=== PATIENT | female | born 1935 | race Caucasian/White ===

== ENCOUNTER 2018-05-28 20:06 | Emergency (ER) | payer MEDICARE, BC, OTHER ==
[~2018-05-28] VITALS: Ht 157.5 cm; Wt 72.7 kg
[~2018-05-28 20:06] MED LIST: ALBU8.5H8 IH; ASPI-1265 PO; BETA1TAB18 PO; CALC0.253 PO; CLOP75TA16 PO; MAGN100T5; METF500T PO; OSC500T PO; PANT-47 PO; PRAV20TA4 PO; SOTA80TA46; SYN0.0125T PO; VALA-7 PO
[2018-05-28] MEDS ORDERED: ketorolac tromethamine 15mg/ml inj. IV ONE (20:25)
[2018-05-28 21:50] VITALS: BP 117/85
== END 2018-05-28 22:50 | disposition home or self-care (01) ==
LOC: ER 20:07
DX: S76.012A Strain of muscle, fascia and tendon of left hip, initial encounter (principal); E11.42 Type 2 diabetes mellitus with diabetic polyneuropathy; I10 Essential (primary) hypertension; K21.9 Gastro-esophageal reflux disease without esophagitis; Z90.49 Acquired absence of other specified parts of digestive tract; Z90.710 Acquired absence of both cervix and uterus; Z87.442 Personal history of urinary calculi; Z87.440 Personal history of urinary (tract) infections; Z79.82 Long term (current) use of aspirin; Z88.0 Allergy status to penicillin; Z88.1 Allergy status to other antibiotic agents; Z88.8 Allergy status to other drugs, medicaments and biological substances; X50.1XXA Overexertion from prolonged static or awkward postures, initial encounter; Y93.89 Activity, other specified; Y92.89 Other specified places as the place of occurrence of the external cause; Y99.8 Other external cause status
CPT/HCPCS: 73502; 96374; 99284; J1885

== ENCOUNTER 2018-08-04 12:46 | Emergency (ER) | payer MEDICARE, BC, OTHER ==
[~2018-08-04] VITALS: Ht 160 cm; Wt 72.0 kg
[2018-08-04 13:20] LABS: BASOPHILS # (AUTO) 0.1 X10'3 (0-0.2); BASOPHILS % (AUTO) 1.5 % (0-1); EOSINOPHILS # (AUTO) 0.1 X10'3 (0-0.9); EOSINOPHILS % (AUTO) 1.6 % (0-6); HEMATOCRIT 40.4 % (35.0-45.0); HEMOGLOBIN 12.7 g/dl (12.0-16.0); LYMPHOCYTES # (AUTO) 2.8 X10'3 (1.1-4.8); LYMPHOCYTES % (AUTO) 30.1 % (21-51); MEAN CORPUSCULAR HEMOGLOBIN 28.9 PG (27.0-31.0); MEAN CORPUSCULAR HGB CONC 31.5 % (33.0-36.5); MEAN CORPUSCULAR VOLUME 91.7 FL (78-98); MEAN PLATELET VOLUME 9.2 FL (7.4-10.4); MONOCYTES # (AUTO) 1.1 X10'3 (0-0.9); MONOCYTES % (AUTO) 12.1 % (2-12); NEUTROPHILS # (AUTO) 5.1 X10'3 (1.8-7.7); NEUTROPHILS % (AUTO) 54.7 % (42-75); PLATELET COUNT 325 X10'3 (140-440); RED BLOOD COUNT 4.41 X10'6 (4.20-5.60); WHITE BLOOD COUNT 9.4 X10'3 (4.5-11.0)
[2018-08-04 13:34] LABS: ANISOCYTOSIS 1+; PLATELET ESTIMATE NORMAL; TARGET CELLS FEW
[2018-08-04 13:46] LABS: ALANINE AMINOTRANSFERASE 26 U/L (12-78); ALBUMIN 3.2 G/DL (3.4-5.0); ALBUMIN/GLOBULIN RATIO 0.8 (1.1-1.5); ALKALINE PHOSPHATASE 91 IU/L (46-116); ANION GAP 10 (8-16); ASPARTATE AMINO TRANSFERASE 24 U/L (10-37); BILIRUBIN,TOTAL 0.3 MG/DL (0.1-1.0); BLOOD UREA NITROGEN 20 MG/DL (7-18); BUN/CREATININE RATIO 16.7 (6.6-38.0); CALCIUM 8.4 MG/DL (8.5-10.1); CHLORIDE 103 MMOL/L (99-107); GLUCOSE 78 MG/DL (70-104); MAGNESIUM 1.8 MG/DL (1.5-2.4); POTASSIUM 3.8 MMOL/L (3.5-5.1); SODIUM 141 MMOL/L (135-145); TOTAL CARBON DIOXIDE 28.5 MMOL/L (24-32); TOTAL PROTEIN 7.4 G/DL (6.4-8.2); eGFR 43 ML/MIN
[2018-08-04 14:27] VITALS: BP 142/85
== END 2018-08-04 14:29 | disposition home or self-care (01) ==
LOC: ER 12:46
DX: R25.2 Cramp and spasm (principal); E83.51 Hypocalcemia; I10 Essential (primary) hypertension; K21.9 Gastro-esophageal reflux disease without esophagitis; E11.42 Type 2 diabetes mellitus with diabetic polyneuropathy; M19.90 Unspecified osteoarthritis, unspecified site; Z90.49 Acquired absence of other specified parts of digestive tract; Z90.710 Acquired absence of both cervix and uterus; Z98.890 Other specified postprocedural states; Z88.0 Allergy status to penicillin; Z88.1 Allergy status to other antibiotic agents; Z88.5 Allergy status to narcotic agent; Z88.6 Allergy status to analgesic agent; Z88.8 Allergy status to other drugs, medicaments and biological substances; Z79.82 Long term (current) use of aspirin; Z79.01 Long term (current) use of anticoagulants; Z79.899 Other long term (current) drug therapy
CPT/HCPCS: 36415; 80053; 83735; 85025; 99284

== ENCOUNTER 2018-11-12 19:31 | Emergency (ER) | payer MEDICARE, BC, OTHER ==
[~2018-11-12] VITALS: Ht 172.7 cm; Wt 72.7 kg
--- NOTE | 2018-11-12 19:37 | NUR ---
PT OFF TRAUMA STATUS DUE TO MD SHETTY.
[2018-11-12] MEDS ORDERED: LIDOcaine 2% 10ml TOPICAL JELLY (Urojet) MM ONE (19:50)
[2018-11-12 20:17] LABS: CLARITY,URINE CLEAR (Clear); COLOR,URINE YELLOW (Yellow); GLUCOSE, URINE NEGATIVE (Neg); KETONES,URINE NEGATIVE (Neg); LEUKOCYTE ESTERASE ,URINE NEGATIVE (Neg); NITRITES, URINE NEGATIVE (Neg); OCCULT BLOOD,URINE TRACE-LYSED (Neg); PH,URINE 6.5 (4.8-8.0); PROTEIN,URINE NEGATIVE (Neg); UROBILINOGEN,URINE 0.2 E.U/dL (0.2-1.0)
[2018-11-12] MEDS ORDERED: fentaNYL/PF 50MCG/1 ML 2ML syringe IV ONE (20:20)
[2018-11-12 20:25] LABS: UA COLLECTION TYPE FOLEY CATH
[2018-11-12 20:26] LABS: BACTERIA,URINE NONE SEEN /HPF (Neg); RBC,URINE 0-2 /HPF (0-2); SQUAMOUS EPITHELIAL CELL,UR FEW /LPF (FEW); WBC,URINE NONE SEEN /HPF (0-4)
[2018-11-12 20:34] LABS: BASOPHILS # (AUTO) 0.2 X10'3 (0-0.2); BASOPHILS % (AUTO) 1.1 % (0-1); EOSINOPHILS # (AUTO) 0.1 X10'3 (0-0.9); EOSINOPHILS % (AUTO) 0.6 % (0-6); HEMATOCRIT 40.7 % (35.0-45.0); HEMOGLOBIN 12.8 g/dl (12.0-16.0); LYMPHOCYTES # (AUTO) 1.7 X10'3 (1.1-4.8); LYMPHOCYTES % (AUTO) 12.1 % (21-51); MEAN CORPUSCULAR HEMOGLOBIN 28.1 PG (27.0-31.0); MEAN CORPUSCULAR HGB CONC 31.4 g/dL (33.0-36.5); MEAN CORPUSCULAR VOLUME 89.6 FL (78-98); MEAN PLATELET VOLUME 9.7 FL (7.4-10.4); MONOCYTES % (AUTO) 6.9 % (2-12); NEUTROPHILS # (AUTO) 11.4 X10'3 (1.8-7.7); NEUTROPHILS % (AUTO) 79.3 % (42-75); PLATELET COUNT 329 X10'3 (140-440); RED BLOOD COUNT 4.54 X10'6 (4.20-5.60); RED CELL DISTRIBUTION WIDTH 16.9 % (11.5-14.5); WHITE BLOOD COUNT 14.4 X10'3 (4.5-11.0)
[2018-11-12 20:39] LABS: ALANINE AMINOTRANSFERASE 26 U/L (12-78); ALBUMIN 3.3 G/DL (3.4-5.0); ALBUMIN/GLOBULIN RATIO 0.7 (1.1-1.5); ALKALINE PHOSPHATASE 112 IU/L (46-116); ANION GAP 10 (8-16); ASPARTATE AMINO TRANSFERASE 25 U/L (10-37); BILIRUBIN,TOTAL 0.4 MG/DL (0.1-1.0); BLOOD UREA NITROGEN 16 MG/DL (7-18); CALCIUM 7.8 MG/DL (8.5-10.1); CHLORIDE 99 MMOL/L (99-107); CREATININE 0.89 MG/DL (0.40-0.90); GLUCOSE 103 MG/DL (70-104); POTASSIUM 3.6 MMOL/L (3.5-5.1); SODIUM 138 MMOL/L (135-145); TOTAL CARBON DIOXIDE 28.8 MMOL/L (24-32); TOTAL PROTEIN 7.9 G/DL (6.4-8.2); eGFR 61 ML/MIN
[2018-11-12 20:54] LABS: INR 1.1 INR; PARTIAL THROMBOPLASTIN TIME 35 SECONDS (22-32); PROTHROMBIN TIME 10.8 SECONDS (9.0-12.0)
[2018-11-12] MEDS ORDERED: morphine 4 MG/ML inj SYRINge IM ONE (22:25)
[2018-11-13] MEDS ORDERED: morphine 4 MG/ML inj SYRINge IV ONE
--- NOTE | 2018-11-13 01:45 | NUR ---
Verbal from Dr. Bryson to leave adams in place for retention until pt can follow up with PCP.
--- NOTE | 2018-11-13 02:04 | NUR ---
Per Dr Boogie, pt to be dc'd with FC in place d/t urinary retention. She is to f/u with PCP in 2-3 days for removal. Bedside drainage switched to leg bag after being emptied.
[2018-11-13 02:11] VITALS: BP 130/75
== END 2018-11-13 02:15 | disposition home or self-care (01) ==
LOC: ER 19:31
DX: M25.551 Pain in right hip (principal); I10 Essential (primary) hypertension; K21.9 Gastro-esophageal reflux disease without esophagitis; M19.90 Unspecified osteoarthritis, unspecified site; E11.42 Type 2 diabetes mellitus with diabetic polyneuropathy; Z90.49 Acquired absence of other specified parts of digestive tract; Z90.710 Acquired absence of both cervix and uterus; Z88.5 Allergy status to narcotic agent; Z88.0 Allergy status to penicillin; Z88.1 Allergy status to other antibiotic agents; Z88.6 Allergy status to analgesic agent; Z88.8 Allergy status to other drugs, medicaments and biological substances; Z79.82 Long term (current) use of aspirin; Z79.84 Long term (current) use of oral hypoglycemic drugs; W01.0XXA Fall on same level from slipping, tripping and stumbling without subsequent striking against object, initial encounter; Y93.89 Activity, other specified; Y92.89 Other specified places as the place of occurrence of the external cause; Y99.8 Other external cause status
CPT/HCPCS: 36415; 70450; 71045; 72192; 73502; 80053; 81001; 85025; 85610; 85730; 86885; 86900; 86901; 93005; 96372; 96374; 99284; J2270; J7030

== ENCOUNTER 2018-11-13 21:30 | Emergency (ER) | payer MEDICARE, BC, OTHER ==
[~2018-11-13] VITALS: Ht 157.5 cm; Wt 73.1 kg
[2018-11-13 21:40] VITALS: BP 143/74
== END 2018-11-13 23:09 | disposition home or self-care (01) ==
LOC: ER 21:31
DX: M25.551 Pain in right hip (principal); Z46.6 Encounter for fitting and adjustment of urinary device; I10 Essential (primary) hypertension; K21.9 Gastro-esophageal reflux disease without esophagitis; E11.40 Type 2 diabetes mellitus with diabetic neuropathy, unspecified; M19.90 Unspecified osteoarthritis, unspecified site; Z88.6 Allergy status to analgesic agent; Z88.1 Allergy status to other antibiotic agents; Z88.0 Allergy status to penicillin; Z88.8 Allergy status to other drugs, medicaments and biological substances; Z79.82 Long term (current) use of aspirin
CPT/HCPCS: 99284

== ENCOUNTER 2018-11-22 17:16 | Emergency (ER) | payer MEDICARE, BC, OTHER ==
[~2018-11-22] VITALS: Ht 157.5 cm; Wt 72.7 kg
[~2018-11-22 17:16] MED LIST changes: -CLOP75TA16 PO; +CLOP75TA8 PO
[2018-11-22 19:07] VITALS: BP 154/72
[2018-11-22] MEDS ORDERED: magnesium citrate 296ml oral solution PO ONE (19:25)
[2018-11-22 20:16] LABS: BASOPHILS # (AUTO) 0.2 X10'3 (0-0.2); BASOPHILS % (AUTO) 2.1 % (0-1); EOSINOPHILS # (AUTO) 0.4 X10'3 (0-0.9); EOSINOPHILS % (AUTO) 3.4 % (0-6); HEMATOCRIT 40.4 % (35.0-45.0); HEMOGLOBIN 13.2 g/dl (12.0-16.0); LYMPHOCYTES # (AUTO) 2.8 X10'3 (1.1-4.8); LYMPHOCYTES % (AUTO) 24.7 % (21-51); MEAN CORPUSCULAR HEMOGLOBIN 29.5 PG (27.0-31.0); MEAN CORPUSCULAR HGB CONC 32.7 g/dL (33.0-36.5); MEAN CORPUSCULAR VOLUME 90.2 FL (78-98); MEAN PLATELET VOLUME 9.2 FL (7.4-10.4); MONOCYTES % (AUTO) 8.9 % (2-12); NEUTROPHILS # (AUTO) 6.8 X10'3 (1.8-7.7); NEUTROPHILS % (AUTO) 60.9 % (42-75); PLATELET COUNT 365 X10'3 (140-440); RED BLOOD COUNT 4.48 X10'6 (4.20-5.60); RED CELL DISTRIBUTION WIDTH 17.5 % (11.5-14.5); WHITE BLOOD COUNT 11.1 X10'3 (4.5-11.0)
[2018-11-22 20:23] LABS: ALANINE AMINOTRANSFERASE 31 U/L (12-78); ALBUMIN 3.3 G/DL (3.4-5.0); ALBUMIN/GLOBULIN RATIO 0.7 (1.1-1.5); ALKALINE PHOSPHATASE 136 IU/L (46-116); ANION GAP 2 (8-16); ASPARTATE AMINO TRANSFERASE 23 U/L (10-37); BILIRUBIN,TOTAL 0.2 MG/DL (0.1-1.0); BLOOD UREA NITROGEN 17 MG/DL (7-18); BUN/CREATININE RATIO 15.7 (6.6-38.0); CALCIUM 9.6 MG/DL (8.5-10.1); CHLORIDE 98 MMOL/L (99-107); CREATININE 1.08 MG/DL (0.40-0.90); GLUCOSE 95 MG/DL (70-104); POTASSIUM 4.2 MMOL/L (3.5-5.1); SODIUM 135 MMOL/L (135-145); TOTAL CARBON DIOXIDE 34.9 MMOL/L (24-32); TOTAL PROTEIN 7.9 G/DL (6.4-8.2); eGFR 48 ML/MIN
[2018-11-22] MEDS ORDERED: polyethylene glycol 3350 17gm powd pack PO SCH (22:02)
[2018-11-22] MEDS ORDERED: POLY17PO10 PO (22:06)
[2018-11-22] MEDS ORDERED: MAGN296S68 CORPAK (22:06)
== END 2018-11-22 22:33 | disposition home or self-care (01) ==
LOC: ER 17:18
DX: K59.00 Constipation, unspecified (principal); E11.42 Type 2 diabetes mellitus with diabetic polyneuropathy; I10 Essential (primary) hypertension; K21.9 Gastro-esophageal reflux disease without esophagitis; E11.9 Type 2 diabetes mellitus without complications; M19.90 Unspecified osteoarthritis, unspecified site; Z90.49 Acquired absence of other specified parts of digestive tract; Z90.710 Acquired absence of both cervix and uterus; Z98.890 Other specified postprocedural states; Z88.0 Allergy status to penicillin; Z88.5 Allergy status to narcotic agent; Z88.8 Allergy status to other drugs, medicaments and biological substances; Z79.82 Long term (current) use of aspirin; Z79.01 Long term (current) use of anticoagulants; Z79.899 Other long term (current) drug therapy
CPT/HCPCS: 36415; 74018; 80053; 83605; 85025; 99284

== ENCOUNTER 2018-12-08 14:29 | Inpatient (IN) | payer MEDICARE, BC, OTHER | END 2018-12-13 11:45 | disposition home or self-care (01) | LOC: SUR 3N 12-10 10:59 → ER 14:29 → SUR 3N 12-09 19:04 → ED HOLD 20:25 | DX: N39.0 Urinary tract infection, site not specified (principal); G93.41 Metabolic encephalopathy; E11.42 Type 2 diabetes mellitus with diabetic polyneuropathy; I10 Essential (primary) hypertension; E03.9 Hypothyroidism, unspecified; F03.90 Unspecified dementia, unspecified severity, without behavioral disturbance, psychotic disturbance, mood disturbance, and anxiety ==

== ENCOUNTER 2019-04-26 11:02 | Inpatient (IN) | payer MEDICARE, BC, OTHER ==
[~2019-04-26] VITALS: Ht 162.6 cm; Wt 69.9 kg
[~2019-04-26 11:02] MED LIST changes: -ALBU8.5H8 IH; +APIX5TAB3 PO; -ASPI-1265 PO; -BETA1TAB18 PO; -CALC0.253 PO; +CALC0.2536 PO; -CLOP75TA8 PO; +ESOM40CA49 PO; +LEVO125T PO; -MAGN100T5; +MAGN500C16 PO; -METF500T PO; +METO50TA16 PO; -OSC500T PO; -PANT-47 PO; +PRAV10TA39 PO; -PRAV20TA4 PO; -SOTA80TA46; -SYN0.0125T PO; -VALA-7 PO; +VALA500T PO
[2019-04-26] MEDS ORDERED: normal saline 1000ML IV soln IV ONE (11:50)
[2019-04-26 12:02] LABS: BASOPHILS % (AUTO) 0.2 % (0-1); EOSINOPHILS % (AUTO) 0 % (0-6); HEMATOCRIT 39.7 % (35.0-45.0); HEMOGLOBIN 13.1 g/dl (12.0-16.0); LYMPHOCYTES # (AUTO) 0.2 X10'3 (1.1-4.8); LYMPHOCYTES % (AUTO) 1.3 % (21-51); MEAN CORPUSCULAR HEMOGLOBIN 31.6 PG (27.0-31.0); MEAN CORPUSCULAR VOLUME 95.6 FL (78-98); MEAN PLATELET VOLUME 9.7 FL (7.4-10.4); MONOCYTES # (AUTO) 0.3 X10'3 (0-0.9); NEUTROPHILS # (AUTO) 14.9 X10'3 (1.8-7.7); NEUTROPHILS % (AUTO) 96.5 % (42-75); PLATELET COUNT 308 X10'3 (140-440); RED BLOOD COUNT 4.16 X10'6 (4.20-5.60); RED CELL DISTRIBUTION WIDTH 14.6 % (11.5-14.5); WHITE BLOOD COUNT 15.5 X10'3 (4.5-11.0)
[2019-04-26] MEDS ORDERED: ondansetron/PF 4mg/2ml inj IV ONE (12:15)
[2019-04-26 12:16] LABS: ALANINE AMINOTRANSFERASE 24 U/L (12-78); ALBUMIN 3.3 G/DL (3.4-5.0); ALBUMIN/GLOBULIN RATIO 0.8 (1.1-1.5); ALKALINE PHOSPHATASE 88 IU/L (46-116); ANION GAP 10 (8-16); ASPARTATE AMINO TRANSFERASE 22 U/L (10-37); BILIRUBIN,TOTAL 0.5 MG/DL (0.1-1.0); BLOOD UREA NITROGEN 18 MG/DL (7-18); BUN/CREATININE RATIO 13.6 (6.6-38.0); CALCIUM 8.3 MG/DL (8.5-10.1); CHLORIDE 102 MMOL/L (99-107); CREATININE 1.32 MG/DL (0.40-0.90); GLUCOSE 222 MG/DL (70-104); POTASSIUM 3.4 MMOL/L (3.5-5.1); SODIUM 136 MMOL/L (135-145); TOTAL CARBON DIOXIDE 23.6 MMOL/L (24-32); TOTAL PROTEIN 7.5 G/DL (6.4-8.2); eGFR 38 ML/MIN
[2019-04-26] MEDS ORDERED: CefTRIAXone 2gm/D5W 50ml 50 ML IV ONE (12:20)
[2019-04-26 12:34] LABS: PARTIAL THROMBOPLASTIN TIME 31 SECONDS (22-32)
[2019-04-26 13:21] LABS: CLARITY,URINE CLEAR (Clear); COLOR,URINE STRAW (Yellow); GLUCOSE, URINE NEGATIVE (Neg); KETONES,URINE NEGATIVE (Neg); LEUKOCYTE ESTERASE ,URINE NEGATIVE (Neg); NITRITES, URINE NEGATIVE (Neg); OCCULT BLOOD,URINE NEGATIVE (Neg); PH,URINE 7.5 (4.8-8.0); PROTEIN,URINE NEGATIVE (Neg); UROBILINOGEN,URINE 0.2 E.U/dL (0.2-1.0)
[2019-04-26 13:22] LABS: UA COLLECTION TYPE STRAIGHT CATH
[2019-04-26] MEDS ORDERED: DIAZ2TAB3 PO (13:55)
[2019-04-26] MEDS ORDERED: METF-950 PO (13:55)
[2019-04-26] MEDS ORDERED: CALC-1051 PO (13:55)
[2019-04-26] MEDS ORDERED: ESOM40CA PO (13:55)
[2019-04-26] MEDS ORDERED: TRAM50TA2 PO (13:55)
[2019-04-26] MEDS ORDERED: METO50TA17 PO (13:56)
[2019-04-26] MEDS ORDERED: LOSA50TA64 PO (14:02)
[2019-04-26] MEDS ORDERED: diazepam 2mg tablet PO PRN (15:10)
[2019-04-26] MEDS ORDERED: morphine 2 MG/ML inj. syringe IV PRN ×2 (15:20)
[2019-04-26] MEDS ORDERED: MESSAGE TO PHARMACY PO ONE (15:20)
[2019-04-26] MEDS ORDERED: diphenhydrAMINE 50 mg/ml inj IV PRN (15:20)
[2019-04-26] MEDS ORDERED: mag hydrox/Alum hydrox/simeth 30ml oral suspension PO PRN (15:20)
[2019-04-26] MEDS ORDERED: dextrose ORAL solution 15 GM/59 ML bottle PO PRN ×2 (15:20)
[2019-04-26] MEDS ORDERED: acetaminophen 650mg rectal suppository RC PRN (15:20)
[2019-04-26] MEDS ORDERED: acetaminophen 325mg tablet PO PRN ×2 (15:20)
[2019-04-26] MEDS ORDERED: potassium CL 10mEq/100ml bag 100 ML IV PRN ×2 (15:20)
[2019-04-26] MEDS ORDERED: glucagon, human recombinant 1mg kit SUBCUT PRN (15:20)
[2019-04-26] MEDS ORDERED: magnesium Cl slow-release 64mg tablet PO PRN (15:20)
[2019-04-26] MEDS ORDERED: dextrose 50%-water 50ml dispensing syringe IV PRN ×2 (15:20)
[2019-04-26] MEDS ORDERED: magnesium 4gm in 100ml NS 100 ML IV PRN (15:20)
[2019-04-26] MEDS ORDERED: HYDROmorphone 1 mg/ml syringe IV PRN (15:20)
[2019-04-26] MEDS ORDERED: diphenhydrAMINE 25mg capsule PO PRN (15:20)
[2019-04-26] MEDS ORDERED: magnesium 2GM in 50ml NS 50 ML IV PRN (15:20)
[2019-04-26] MEDS ORDERED: HYDROmorphone inj. 0.5 MG/0.5 ML DISP.SYRIN IV PRN (15:20)
[2019-04-26] MEDS ORDERED: insulin Lispro (HumaLOG) vial - multi-dose SQ SCH (15:20)
[2019-04-26] MEDS ORDERED: bisacodyl 10mg suppository rectal RC PRN (15:20)
[2019-04-26] MEDS ORDERED: magnesium hydroxide 30ml (MOM) UD suspension PO PRN (15:20)
[2019-04-26] MEDS ORDERED: potassium Cl 20 mEq SR tablet PO PRN ×2 (15:20)
[2019-04-26 16:22] LABS: HEMOGLOBIN A1C 6.5 % (4.5-6.2)
[2019-04-26] MEDS: normal saline 1000ml 1,000 ML IV SCH (16:28)
[2019-04-26] MEDS: vancomycin/NS 1 GM ADD-VANTAGE 250 ML IV SCH (16:28)
[2019-04-26] MEDS ORDERED: valacyclovir 500mg tablet PO SCH (17:00)
--- NOTE | 2019-04-26 19:00 | NUR ---
Patient in room PCU 3017. I have received report from Yamila RN and had the opportunity to ask questions and assume patient care.
[2019-04-26 19:10] VITALS: BP 130/69
--- NOTE | 2019-04-26 19:10 | NUR ---
Patient arrived to room 3017B from the ER via gurney with daughter at bedside. All belongings on person. Patient oriented to room, call light, plan of care and all questions answered. Tele monitor #50 put on and 2 RN skin check done. Vital signs stable. Will continue to monitor.
[2019-04-26] MEDS: K and/or MAG REPLACEMENT MC SCH (20:25)
[2019-04-26] MEDS: apixaban 5mg tablet PO SCH (20:30)
[2019-04-26] MEDS: calcitriol 0.25mcg capsule PO SCH (20:31)
[2019-04-26] MEDS: calcium carbonate/vitamin D3 tablet PO SCH (20:31)
[2019-04-26] MEDS: metoprolol tartrate 50mg tablet PO SCH (20:33)
[2019-04-26] MEDS: atorvastatin 10mg tablet PO SCH (20:34)
[2019-04-26] MEDS: insulin glargine (Lantus) pen - multi-dose SQ SCH (21:00)
[2019-04-26] MEDS: cefepime 2g/NS 100ml ADVANTAGE 100 ML IV SCH (21:18)
[2019-04-26 23:00] VITALS: BP 106/57
[2019-04-27] VITALS (8 sets, daily range): BP systolic 17–145; BP diastolic 49–96
[2019-04-27] MEDS: HYDROcodone/acetaminophen 5mg/325mg tablet PO PRN ×2 (00:49→05:57)
[2019-04-27] MEDS: normal saline 1000ml 1,000 ML IV SCH ×3 (01:16→17:05)
[2019-04-27] MEDS: vancomycin/NS 1 GM ADD-VANTAGE 250 ML IV SCH (04:32)
[2019-04-27 05:55] LABS: BASOPHILS % (AUTO) 0.3 % (0-1); EOSINOPHILS # (AUTO) 0.5 X10'3 (0-0.9); EOSINOPHILS % (AUTO) 5.5 % (0-6); HEMATOCRIT 33.6 % (35.0-45.0); HEMOGLOBIN 11.2 g/dl (12.0-16.0); LYMPHOCYTES # (AUTO) 0.6 X10'3 (1.1-4.8); LYMPHOCYTES % (AUTO) 6.2 % (21-51); MEAN CORPUSCULAR HEMOGLOBIN 32.1 PG (27.0-31.0); MEAN CORPUSCULAR HGB CONC 33.2 g/dL (33.0-36.5); MEAN CORPUSCULAR VOLUME 96.5 FL (78-98); MEAN PLATELET VOLUME 10.3 FL (7.4-10.4); MONOCYTES # (AUTO) 0.4 X10'3 (0-0.9); MONOCYTES % (AUTO) 4.8 % (2-12); NEUTROPHILS # (AUTO) 7.8 X10'3 (1.8-7.7); NEUTROPHILS % (AUTO) 83.2 % (42-75); PLATELET COUNT 250 X10'3 (140-440); RED BLOOD COUNT 3.48 X10'6 (4.20-5.60); RED CELL DISTRIBUTION WIDTH 14.7 % (11.5-14.5); WHITE BLOOD COUNT 9.3 X10'3 (4.5-11.0)
[2019-04-27 06:17] LABS: ALANINE AMINOTRANSFERASE 52 U/L (12-78); ALBUMIN 2.4 G/DL (3.4-5.0); ALBUMIN/GLOBULIN RATIO 0.7 (1.1-1.5); ALKALINE PHOSPHATASE 75 IU/L (46-116); ANION GAP 11 (8-16); ASPARTATE AMINO TRANSFERASE 58 U/L (10-37); BILIRUBIN,TOTAL 0.4 MG/DL (0.1-1.0); BLOOD UREA NITROGEN 17 MG/DL (7-18); BUN/CREATININE RATIO 13.4 (6.6-38.0); CALCIUM 8.1 MG/DL (8.5-10.1); CHLORIDE 107 MMOL/L (99-107); CHOL/HDL RATIO 2.8 (0.00-4.99); CHOLESTEROL 81 MG/DL (0-200); CREATININE 1.27 MG/DL (0.40-0.90); GLUCOSE 89 MG/DL (70-104); HDL CHOLESTEROL 29 MG/DL (35-60); LDL CHOLESTEROL 42 MG/DL (50-100); MAGNESIUM 1.3 MG/DL (1.5-2.4); PHOSPHORUS 4.2 MG/DL (2.3-4.5); POTASSIUM 4.2 MMOL/L (3.5-5.1); SODIUM 140 MMOL/L (135-145); TOTAL PROTEIN 5.9 G/DL (6.4-8.2); TRIGLYCERIDES 81 MG/DL (20-135); eGFR 40 ML/MIN
--- NOTE | 2019-04-27 06:29 | NUR ---
Problems reprioritized. Patient report given, questions answered & plan of care reviewed with Nayla GARCIA.
[2019-04-27] MEDS ORDERED: levoTHYROXINE 125mcg tablet PO SCH (07:00)
[2019-04-27] MEDS: K and/or MAG REPLACEMENT MC SCH (08:00)
[2019-04-27] MEDS: apixaban 5mg tablet PO SCH ×2 (09:15→20:23)
[2019-04-27] MEDS: calcitriol 0.25mcg capsule PO SCH ×2 (09:15→20:18)
[2019-04-27] MEDS: calcium carbonate/vitamin D3 tablet PO SCH ×2 (09:16→20:23)
[2019-04-27] MEDS: metoprolol tartrate 50mg tablet PO SCH ×2 (09:17→20:22)
[2019-04-27] MEDS: magnesium oxide 400mg tablet PO SCH (09:17)
[2019-04-27] MEDS: atorvastatin 10mg tablet PO SCH ×2 (09:18→20:22)
[2019-04-27] MEDS: ESOMEPRAZOLE MAGNESIUM PO SCH (09:20)
[2019-04-27] MEDS: losartan 50mg tablet PO SCH (09:30)
[2019-04-27] MEDS: cefepime 2g/NS 100ml ADVANTAGE 100 ML IV SCH ×2 (09:30→20:24)
[2019-04-27] MEDS: ondansetron/PF 4mg/2ml inj IV PRN ×2 (12:51→20:34)
[2019-04-27] MEDS: VALACYCLOVIR 500 MG PO SCH (17:41)
--- NOTE | 2019-04-27 17:50 | NUR ---
VS stable throughout the day. safety maintained ambulating independently in room. Mag 1.3 replaced. BG stable, pt has not met insulin protocol.
--- NOTE | 2019-04-27 18:20 | NUR ---
Patient in room PCU 3017. I have received report from RADHA Winslow and had the opportunity to ask questions and assume patient care.
[2019-04-27] MEDS: lactobacillus rhamnosus 10,000 MMU CELLS/CAPSULE PO SCH (20:18)
[2019-04-27] MEDS: insulin glargine (Lantus) pen - multi-dose SQ SCH (21:00)
[2019-04-28] VITALS (7 sets, daily range): BP systolic 125–155; BP diastolic 61–94
[2019-04-28] MEDS: HYDROcodone/acetaminophen 5mg/325mg tablet PO PRN (02:21)
--- NOTE | 2019-04-28 02:39 | NUR ---
I woke the patient up to get her daily weight which is late due to missed daily weight by dayshift nurse. I also discussed with the patient her wishes to be a Do Not Resuscitate. As I explained it to her, she stated to me, " I do not want any tubes down my throat." I asked her if she would like us to perform CPR on her if it were to end up being medically necessary. I explained this in great detail an she stated, "Yes, I want chest compressions, you can perform CPR on me, but no tubes down my throat." I told her that I would pass this information onto the dayshift nurse and they would need to revisit this topic with the daytime hospitalist. She agreed, did not want me to put the DNR wristband on her. I will pass this information to the dayshift nurse. But per discussion with the patient she does not want to be a DNR, but more of a limited code.
[2019-04-28] MEDS ORDERED: VANCOMYCIN LEVEL IV ONE (03:30)
[2019-04-28] MEDS: vancomycin/NS 1 GM ADD-VANTAGE 250 ML IV SCH (03:55)
--- NOTE | 2019-04-28 04:02 | NUR ---
Patient is concerned that she is not getting enough calcium. I told her the doctor is aware of what she is taking but that I would make a note of it.
--- NOTE | 2019-04-28 06:00 | NUR ---
Patient in room PCU 3017. I have received report from RADHA Morejon and had the opportunity to ask questions and assume patient care. Patient is currently sleeping in bed, bed locked and low, NS@100ml/hr call light in reach, no acute distress, will continue to monitor.
--- NOTE | 2019-04-28 06:16 | NUR ---
Problems reprioritized. Patient report given, questions answered & plan of care reviewed with RADHA Gaston.
[2019-04-28 06:28] LABS: ALANINE AMINOTRANSFERASE 42 U/L (12-78); ALBUMIN 2.4 G/DL (3.4-5.0); ALBUMIN/GLOBULIN RATIO 0.6 (1.1-1.5); ALKALINE PHOSPHATASE 77 IU/L (46-116); ANION GAP 10 (8-16); ASPARTATE AMINO TRANSFERASE 30 U/L (10-37); BILIRUBIN,TOTAL 0.3 MG/DL (0.1-1.0); BLOOD UREA NITROGEN 14 MG/DL (7-18); BUN/CREATININE RATIO 13.5 (6.6-38.0); CALCIUM 7.5 MG/DL (8.5-10.1); CHLORIDE 110 MMOL/L (99-107); CREATININE 1.04 MG/DL (0.40-0.90); GLUCOSE 87 MG/DL (70-104); MAGNESIUM 1.6 MG/DL (1.5-2.4); PHOSPHORUS 3.9 MG/DL (2.3-4.5); SODIUM 143 MMOL/L (135-145); TOTAL CARBON DIOXIDE 22.6 MMOL/L (24-32); TOTAL PROTEIN 6.1 G/DL (6.4-8.2); eGFR 51 ML/MIN
[2019-04-28] MEDS: levoTHYROXINE 125mcg tablet PO SCH (07:22)
[2019-04-28 07:29] LABS: BASOPHILS # (AUTO) 0.1 X10'3 (0-0.2); BASOPHILS % (AUTO) 1.2 % (0-1); EOSINOPHILS # (AUTO) 0.6 X10'3 (0-0.9); EOSINOPHILS % (AUTO) 8.9 % (0-6); HEMATOCRIT 33.6 % (35.0-45.0); HEMOGLOBIN 10.9 g/dl (12.0-16.0); LYMPHOCYTES # (AUTO) 1.1 X10'3 (1.1-4.8); LYMPHOCYTES % (AUTO) 17.8 % (21-51); MEAN CORPUSCULAR HEMOGLOBIN 31.2 PG (27.0-31.0); MEAN CORPUSCULAR HGB CONC 32.4 g/dL (33.0-36.5); MEAN CORPUSCULAR VOLUME 96.2 FL (78-98); MEAN PLATELET VOLUME 10.7 FL (7.4-10.4); MONOCYTES # (AUTO) 0.7 X10'3 (0-0.9); MONOCYTES % (AUTO) 10.2 % (2-12); NEUTROPHILS # (AUTO) 3.9 X10'3 (1.8-7.7); NEUTROPHILS % (AUTO) 61.9 % (42-75); PLATELET COUNT 237 X10'3 (140-440); RED BLOOD COUNT 3.49 X10'6 (4.20-5.60); RED CELL DISTRIBUTION WIDTH 14.6 % (11.5-14.5); WHITE BLOOD COUNT 6.4 X10'3 (4.5-11.0)
[2019-04-28] MEDS: apixaban 5mg tablet PO SCH ×2 (07:53→20:02)
[2019-04-28] MEDS: lactobacillus rhamnosus 10,000 MMU CELLS/CAPSULE PO SCH ×2 (07:53→20:02)
[2019-04-28] MEDS: calcitriol 0.25mcg capsule PO SCH ×2 (07:53→20:00)
[2019-04-28] MEDS: calcium carbonate/vitamin D3 tablet PO SCH ×2 (07:53→20:01)
[2019-04-28] MEDS: metoprolol tartrate 50mg tablet PO SCH ×2 (07:58→20:05)
[2019-04-28] MEDS: normal saline 1000ml 1,000 ML IV SCH ×2 (07:59→20:00)
[2019-04-28] MEDS: K and/or MAG REPLACEMENT MC SCH (08:00)
[2019-04-28] MEDS: ESOMEPRAZOLE MAGNESIUM PO SCH (08:09)
[2019-04-28] MEDS: cefepime inj 2 GM in dextrose 5%-water 50ml 50 ML IV SCH ×2 (08:09→20:06)
[2019-04-28] MEDS: losartan 50mg tablet PO SCH (08:10)
[2019-04-28] MEDS: magnesium oxide 400mg tablet PO SCH (08:10)
[2019-04-28] MEDS: VALACYCLOVIR 500 MG PO SCH (17:33)
--- NOTE | 2019-04-28 18:23 | NUR ---
Problems reprioritized. Patient report given, questions answered & plan of care reviewed with RADHA Morejon. Patient is currently sitting up in bed eating dinner, bed locked and low, call light in reach, stable at shift change.
[2019-04-28] MEDS: atorvastatin 10mg tablet PO SCH (20:01)
[2019-04-28] MEDS: insulin glargine (Lantus) pen - multi-dose SQ SCH (21:00)
--- NOTE | 2019-04-29 01:11 | NUR ---
Patient refused orthostatic vital signs. Addendum: 04/29/19 at 0111 by Darleen Luther RN Amended: Links added.
[2019-04-29 03:00] VITALS: BP 153/72
[2019-04-29] MEDS: HYDROcodone/acetaminophen 5mg/325mg tablet PO PRN ×2 (03:50→08:59)
[2019-04-29] MEDS: vancomycin/NS 1 GM ADD-VANTAGE 250 ML IV SCH (04:40)
[2019-04-29] MEDS: normal saline 1000ml 1,000 ML IV SCH ×2 (04:44→13:44)
[2019-04-29 06:24] LABS: BASOPHILS # (AUTO) 0.1 X10'3 (0-0.2); BASOPHILS % (AUTO) 0.6 % (0-1); EOSINOPHILS # (AUTO) 0.5 X10'3 (0-0.9); EOSINOPHILS % (AUTO) 5.4 % (0-6); HEMATOCRIT 33.1 % (35.0-45.0); HEMOGLOBIN 10.8 g/dl (12.0-16.0); LYMPHOCYTES # (AUTO) 1.6 X10'3 (1.1-4.8); LYMPHOCYTES % (AUTO) 16.3 % (21-51); MEAN CORPUSCULAR HEMOGLOBIN 31.6 PG (27.0-31.0); MEAN CORPUSCULAR HGB CONC 32.8 g/dL (33.0-36.5); MEAN CORPUSCULAR VOLUME 96.6 FL (78-98); MEAN PLATELET VOLUME 10.1 FL (7.4-10.4); MONOCYTES # (AUTO) 1.1 X10'3 (0-0.9); MONOCYTES % (AUTO) 11.6 % (2-12); NEUTROPHILS # (AUTO) 6.4 X10'3 (1.8-7.7); NEUTROPHILS % (AUTO) 66.1 % (42-75); PLATELET COUNT 247 X10'3 (140-440); RED BLOOD COUNT 3.43 X10'6 (4.20-5.60); RED CELL DISTRIBUTION WIDTH 14.8 % (11.5-14.5); WHITE BLOOD COUNT 9.6 X10'3 (4.5-11.0)
[2019-04-29 06:27] LABS: ALANINE AMINOTRANSFERASE 34 U/L (12-78); ALBUMIN 2.6 G/DL (3.4-5.0); ALBUMIN/GLOBULIN RATIO 0.7 (1.1-1.5); ALKALINE PHOSPHATASE 78 IU/L (46-116); ANION GAP 9 (8-16); ASPARTATE AMINO TRANSFERASE 25 U/L (10-37); BILIRUBIN,TOTAL 0.4 MG/DL (0.1-1.0); BLOOD UREA NITROGEN 14 MG/DL (7-18); BUN/CREATININE RATIO 15.1 (6.6-38.0); CALCIUM 7.1 MG/DL (8.5-10.1); CHLORIDE 109 MMOL/L (99-107); CREATININE 0.93 MG/DL (0.40-0.90); GLUCOSE 98 MG/DL (70-104); MAGNESIUM 1.6 MG/DL (1.5-2.4); PHOSPHORUS 3.6 MG/DL (2.3-4.5); POTASSIUM 3.6 MMOL/L (3.5-5.1); SODIUM 143 MMOL/L (135-145); TOTAL CARBON DIOXIDE 25.3 MMOL/L (24-32); TOTAL PROTEIN 6.2 G/DL (6.4-8.2); eGFR 58 ML/MIN
--- NOTE | 2019-04-29 06:40 | NUR ---
Problems reprioritized. Patient report given, questions answered & plan of care reviewed with RADHA Purvis.
[2019-04-29 07:00] VITALS: BP 135/61
[2019-04-29] MEDS: K and/or MAG REPLACEMENT MC SCH (08:00)
[2019-04-29] MEDS: apixaban 5mg tablet PO SCH (08:45)
[2019-04-29] MEDS: losartan 50mg tablet PO SCH (08:45)
[2019-04-29] MEDS: levoTHYROXINE 125mcg tablet PO SCH (08:45)
[2019-04-29] MEDS: calcitriol 0.25mcg capsule PO SCH (08:45)
[2019-04-29] MEDS: lactobacillus rhamnosus 10,000 MMU CELLS/CAPSULE PO SCH (08:45)
[2019-04-29 08:46] VITALS: BP_SYST 135
[2019-04-29] MEDS: metoprolol tartrate 50mg tablet PO SCH (08:46)
[2019-04-29] MEDS: magnesium oxide 400mg tablet PO SCH (08:46)
[2019-04-29] MEDS: calcium carbonate/vitamin D3 tablet PO SCH (08:47)
[2019-04-29] MEDS: ESOMEPRAZOLE MAGNESIUM PO SCH (08:47)
--- NOTE | 2019-04-29 10:54 | NUR ---
PAGER ID: [phone] MESSAGE: 301Anupama [place]. Pt would like to change her code status. Hyun [id number]
[2019-04-29] MEDS: cefepime inj 2 GM in dextrose 5%-water 50ml 50 ML IV SCH (13:42)
--- NOTE | 2019-04-29 15:31 | NUR ---
Called report to [facility], RADHA Mckeon
--- NOTE | 2019-04-29 16:20 | NUR ---
Patient was discharged to [facility]. Packet was given to [employer], all belongings were sent with patient, PIV was removed, Family was notified. Patient was wheeled out, RX were obtained from the pharmacy and left with the patient.
[2019-04-30] MEDS ORDERED: VANCOMYCIN LEVEL IV ONE (03:30)
== END 2019-04-29 16:22 | DRG 872 ==
LOC: ER 11:02 → PCU 3S 19:08
PROVIDERS: ADMIT Family Medicine; ATTEND Family Medicine
DX: A41.9 Sepsis, unspecified organism (principal); E87.2 Acidosis; N39.0 Urinary tract infection, site not specified; D69.3 Immune thrombocytopenic purpura; R44.0 Auditory hallucinations; E11.42 Type 2 diabetes mellitus with diabetic polyneuropathy; E20.9 Hypoparathyroidism, unspecified; E89.0 Postprocedural hypothyroidism; I10 Essential (primary) hypertension; K21.9 Gastro-esophageal reflux disease without esophagitis; M19.90 Unspecified osteoarthritis, unspecified site; Z66 Do not resuscitate; R19.7 Diarrhea, unspecified; Z82.49 Family history of ischemic heart disease and other diseases of the circulatory system; Z85.850 Personal history of malignant neoplasm of thyroid; Z86.2 Personal history of diseases of the blood and blood-forming organs and certain disorders involving the immune mechanism; Z86.73 Personal history of transient ischemic attack (TIA), and cerebral infarction without residual deficits; Z87.442 Personal history of urinary calculi; Z90.49 Acquired absence of other specified parts of digestive tract; Z90.710 Acquired absence of both cervix and uterus; Z90.81 Acquired absence of spleen; Z98.42 Cataract extraction status, left eye; Z98.41 Cataract extraction status, right eye; Z88.1 Allergy status to other antibiotic agents; Z88.5 Allergy status to narcotic agent; Z88.2 Allergy status to sulfonamides; Z88.8 Allergy status to other drugs, medicaments and biological substances
CPT/HCPCS: 36415; 71045; 71250; 74176; 80053; 80061; 81003; 82948; 83036; 83605; 83735; 84100; 84145; 84443; 85025; 85610; 85730; 87040; 87081; 93306; 96365; 96375; 97110; 97161; 97530; 99285; G0378; J0692; J0696; J1170; J1815; J2405; J3370; J7030; J7060; Q0163

== ENCOUNTER 2021-08-30 14:06 | Emergency (ER) | payer MEDICARE, BC, OTHER ==
[~2021-08-30] VITALS: Ht 157.5 cm; Wt 72.7 kg
[~2021-08-30 14:06] MED LIST changes: +CALC-1051 PO; +DIAZ2TAB3 PO; +LOSA50TA64 PO; +METF-1203 PO; -METO50TA16 PO; +METO50TA17 PO; +TRAM50TA2 PO
[2021-08-30] MEDS ORDERED: oxyCODONE/APAP 5-325mg tablet PO ONE (17:30)
[2021-08-30 17:35] VITALS: BP 151/86
[2021-08-30] MEDS ORDERED: OXYC-145 PO (19:06)
== END 2021-08-30 19:30 | disposition home or self-care (01) ==
LOC: ER 14:06
DX: S32.040A Wedge compression fracture of fourth lumbar vertebra, initial encounter for closed fracture (principal); S01.01XA Laceration without foreign body of scalp, initial encounter; S09.90XA Unspecified injury of head, initial encounter; I10 Essential (primary) hypertension; K21.9 Gastro-esophageal reflux disease without esophagitis; E11.43 Type 2 diabetes mellitus with diabetic autonomic (poly)neuropathy; M19.90 Unspecified osteoarthritis, unspecified site; Z87.19 Personal history of other diseases of the digestive system; Z87.442 Personal history of urinary calculi; Z85.9 Personal history of malignant neoplasm, unspecified; Z90.49 Acquired absence of other specified parts of digestive tract; Z90.710 Acquired absence of both cervix and uterus; Z88.0 Allergy status to penicillin; Z88.1 Allergy status to other antibiotic agents; Z88.8 Allergy status to other drugs, medicaments and biological substances; Z79.899 Other long term (current) drug therapy; W01.0XXA Fall on same level from slipping, tripping and stumbling without subsequent striking against object, initial encounter; Y93.89 Activity, other specified; Y92.89 Other specified places as the place of occurrence of the external cause; Y99.8 Other external cause status
CPT/HCPCS: 12001; 70450; 72128; 72131; 99284

== ENCOUNTER 2021-11-21 18:11 | Emergency (ER) | payer MEDICARE, BC, OTHER ==
[~2021-11-21] VITALS: Ht 157.5 cm; Wt 72.0 kg
[~2021-11-21 18:11] MED LIST changes: -MAGN500C16 PO; +MAGN500C4 PO; +OXYC-145 PO
[2021-11-21] MEDS ORDERED: normal saline 1000ML IV soln IVB ONE (18:40)
[2021-11-21] MEDS ORDERED: metoclopramide 5 mg/ml inj IV ONE (18:40)
[2021-11-21] MEDS ORDERED: diphenhydrAMINE 50 mg/ml inj IV ONE (18:40)
[2021-11-21 19:12] LABS: BASOPHILS # (AUTO) 0.1 X10'3 (0-0.2); BASOPHILS % (AUTO) 1.4 % (0-1); EOSINOPHILS # (AUTO) 0.1 X10'3 (0-0.9); EOSINOPHILS % (AUTO) 2.2 % (0-6); HEMATOCRIT 37.3 % (35.0-45.0); HEMOGLOBIN 12.2 g/dl (12.0-16.0); LYMPHOCYTES # (AUTO) 1.5 X10'3 (1.1-4.8); LYMPHOCYTES % (AUTO) 22.8 % (21-51); MEAN CORPUSCULAR HEMOGLOBIN 31.4 PG (27.0-31.0); MEAN CORPUSCULAR HGB CONC 32.8 g/dL (33.0-36.5); MEAN CORPUSCULAR VOLUME 95.8 FL (78-98); MEAN PLATELET VOLUME 9.4 FL (7.4-10.4); MONOCYTES # (AUTO) 0.7 X10'3 (0-0.9); MONOCYTES % (AUTO) 9.8 % (2-12); NEUTROPHILS # (AUTO) 4.3 X10'3 (1.8-7.7); NEUTROPHILS % (AUTO) 63.8 % (42-75); PLATELET COUNT 323 X10'3 (140-440); RED CELL DISTRIBUTION WIDTH 15.1 % (11.5-14.5); WHITE BLOOD COUNT 6.8 X10'3 (4.5-11.0)
[2021-11-21 19:31] LABS: ALANINE AMINOTRANSFERASE 27 U/L (12-78); ALBUMIN 3.3 G/DL (3.4-5.0); ALBUMIN/GLOBULIN RATIO 0.8 (1.1-1.5); ALKALINE PHOSPHATASE 91 IU/L (46-116); ANION GAP 9 (8-16); ASPARTATE AMINO TRANSFERASE 28 U/L (10-37); BILIRUBIN,TOTAL 0.4 MG/DL (0.1-1.0); BLOOD UREA NITROGEN 23 MG/DL (7-18); BUN/CREATININE RATIO 21.1 (6.6-38.0); CHLORIDE 96 MMOL/L (99-107); CREATININE 1.09 MG/DL (0.40-0.90); GLUCOSE 111 MG/DL (70-104); POTASSIUM 4.3 MMOL/L (3.5-5.1); SODIUM 131 MMOL/L (135-145); TOTAL CARBON DIOXIDE 26.5 MMOL/L (24-32); TOTAL PROTEIN 7.7 G/DL (6.4-8.2); eGFR 48 ML/MIN
[2021-11-21 20:13] VITALS: BP 180/106
== END 2021-11-21 20:24 | disposition home or self-care (01) ==
LOC: ER 18:12
DX: G43.909 Migraine, unspecified, not intractable, without status migrainosus (principal); E11.43 Type 2 diabetes mellitus with diabetic autonomic (poly)neuropathy; I10 Essential (primary) hypertension; K21.9 Gastro-esophageal reflux disease without esophagitis; M19.90 Unspecified osteoarthritis, unspecified site; Z87.19 Personal history of other diseases of the digestive system; Z87.442 Personal history of urinary calculi; Z87.440 Personal history of urinary (tract) infections; Z85.9 Personal history of malignant neoplasm, unspecified; Z90.49 Acquired absence of other specified parts of digestive tract; Z98.891 History of uterine scar from previous surgery; Z90.710 Acquired absence of both cervix and uterus; Z98.890 Other specified postprocedural states; Z88.0 Allergy status to penicillin; Z88.1 Allergy status to other antibiotic agents; Z88.2 Allergy status to sulfonamides; Z88.6 Allergy status to analgesic agent; Z88.8 Allergy status to other drugs, medicaments and biological substances; Z79.2 Long term (current) use of antibiotics; Z79.899 Other long term (current) drug therapy
CPT/HCPCS: 36415; 70450; 80053; 85025; 96361; 96374; 96375; 99284; J1200; J2765; J7030

== ENCOUNTER 2022-07-06 10:17 | Emergency (ER) | payer MEDICARE, BC, OTHER ==
[~2022-07-06] VITALS: Ht 154.9 cm; Wt 62.0 kg
[2022-07-06 11:48] VITALS: BP 122/66
[2022-07-06 12:22] LABS: BASOPHILS # (AUTO) 0.1 X10'3 (0-0.2); BASOPHILS % (AUTO) 0.6 % (0-1); EOSINOPHILS # (AUTO) 0.1 X10'3 (0-0.9); EOSINOPHILS % (AUTO) 1.4 % (0-6); HEMATOCRIT 39.2 % (35.0-45.0); HEMOGLOBIN 12.7 g/dl (12.0-16.0); LYMPHOCYTES # (AUTO) 1.6 X10'3 (1.1-4.8); MEAN CORPUSCULAR HEMOGLOBIN 32.2 PG (27.0-31.0); MEAN CORPUSCULAR HGB CONC 32.4 g/dL (33.0-36.5); MEAN CORPUSCULAR VOLUME 99.3 FL (78-98); MONOCYTES # (AUTO) 1.1 X10'3 (0-0.9); MONOCYTES % (AUTO) 10.5 % (2-12); NEUTROPHILS # (AUTO) 7.5 X10'3 (1.8-7.7); NEUTROPHILS % (AUTO) 72.5 % (42-75); PLATELET COUNT 256 X10'3 (140-440); RED BLOOD COUNT 3.95 X10'6 (4.20-5.60); RED CELL DISTRIBUTION WIDTH 15.3 % (11.5-14.5); WHITE BLOOD COUNT 10.4 X10'3 (4.5-11.0)
[2022-07-06] MEDS ORDERED: ondansetron/PF 4mg/2ml inj IV ONE (12:45)
[2022-07-06] MEDS ORDERED: normal saline 1000ML IV soln IVB ONE ×2 (12:45→12:50)
[2022-07-06 13:17] LABS: ALANINE AMINOTRANSFERASE 17 U/L (12-78); ALBUMIN 2.8 G/DL (3.4-5.0); ALBUMIN/GLOBULIN RATIO 0.6 (1.1-1.5); ALKALINE PHOSPHATASE 113 IU/L (46-116); ANION GAP 11 (8-16); ASPARTATE AMINO TRANSFERASE 23 U/L (10-37); BILIRUBIN,TOTAL 0.4 MG/DL (0.1-1.0); BLOOD UREA NITROGEN 25 MG/DL (7-18); BUN/CREATININE RATIO 21.6 (6.6-38.0); CALCIUM 8.4 MG/DL (8.5-10.1); CHLORIDE 104 MMOL/L (99-107); CREATININE 1.16 MG/DL (0.40-0.90); GLUCOSE 126 MG/DL (70-104); POTASSIUM 3.8 MMOL/L (3.5-5.1); SODIUM 137 MMOL/L (135-145); TOTAL CARBON DIOXIDE 21.7 MMOL/L (24-32); TOTAL PROTEIN 7.2 G/DL (6.4-8.2); eGFR 44 ML/MIN
--- NOTE | 2022-07-06 13:20 | NUR ---
To CT at this time via [facility].
[2022-07-06 13:26] LABS: LIPASE 176 U/L (73-393)
[2022-07-06 14:38] LABS: CLARITY,URINE SLIGHTLY CLOUDY (Clear); COLOR,URINE YELLOW (Yellow); GLUCOSE, URINE NEGATIVE (Neg); KETONES,URINE 15 mg/dl (Neg); LEUKOCYTE ESTERASE ,URINE SMALL (Neg); NITRITES, URINE NEGATIVE (Neg); OCCULT BLOOD,URINE LARGE (Neg); PROTEIN,URINE 30 mg/dl (Neg)
[2022-07-06 14:44] LABS: UA COLLECTION TYPE CLN CATCH MIDSTREAM
[2022-07-06 14:45] LABS: WBC,URINE 30-50 /HPF (0-4)
[2022-07-06 14:46] LABS: BACTERIA,URINE 1+ /HPF (Neg); MUCUS STRANDS FEW /LPF (Neg); RBC,URINE 50-100 /HPF (0-2); SQUAMOUS EPITHELIAL CELL,UR MODERATE /LPF (FEW)
[2022-07-06] MEDS ORDERED: CIPR-202 PO (14:54)
[2022-07-06] MEDS ORDERED: ciprofloxacin 250mg tablet PO ONE (15:00)
== END 2022-07-06 15:25 | disposition home or self-care (01) ==
LOC: ER 10:17
DX: K52.9 Noninfective gastroenteritis and colitis, unspecified (principal); R10.13 Epigastric pain; E11.42 Type 2 diabetes mellitus with diabetic polyneuropathy; I10 Essential (primary) hypertension; K21.9 Gastro-esophageal reflux disease without esophagitis; M19.90 Unspecified osteoarthritis, unspecified site; Z87.440 Personal history of urinary (tract) infections; Z87.442 Personal history of urinary calculi; Z85.9 Personal history of malignant neoplasm, unspecified; Z90.89 Acquired absence of other organs; Z90.49 Acquired absence of other specified parts of digestive tract; Z90.710 Acquired absence of both cervix and uterus; Z98.890 Other specified postprocedural states; Z88.1 Allergy status to other antibiotic agents; Z88.6 Allergy status to analgesic agent; Z79.82 Long term (current) use of aspirin; Z88.0 Allergy status to penicillin; Z88.5 Allergy status to narcotic agent; Z79.2 Long term (current) use of antibiotics; Z79.899 Other long term (current) drug therapy; R55 Syncope and collapse
CPT/HCPCS: 36415; 70450; 71045; 74176; 80053; 81001; 83690; 83880; 84484; 85025; 87077; 87088; 87186; 93005; 96374; 99285; J2405; J7030

== ENCOUNTER 2022-08-22 15:58 | Emergency (ER) | payer MEDICARE, BC, OTHER ==
[~2022-08-22] VITALS: Ht 157.5 cm; Wt 70.5 kg
[2022-08-22 16:22] VITALS: BP 155/84
== END 2022-08-23 01:50 | disposition home or self-care (01) ==
LOC: ER 15:59
DX: S80.11XA Contusion of right lower leg, initial encounter (principal); I10 Essential (primary) hypertension; S00.03XA Contusion of scalp, initial encounter; K21.9 Gastro-esophageal reflux disease without esophagitis; E11.9 Type 2 diabetes mellitus without complications; M19.90 Unspecified osteoarthritis, unspecified site; Z98.890 Other specified postprocedural states; Z90.49 Acquired absence of other specified parts of digestive tract; Z90.710 Acquired absence of both cervix and uterus; Z91.041 Radiographic dye allergy status; Z88.6 Allergy status to analgesic agent; Z88.5 Allergy status to narcotic agent; Z88.1 Allergy status to other antibiotic agents; W19.XXXA Unspecified fall, initial encounter; Y93.89 Activity, other specified; Y92.89 Other specified places as the place of occurrence of the external cause; Y99.8 Other external cause status
CPT/HCPCS: 70450; 73080; 73502; 99284

== ENCOUNTER 2022-11-13 14:40 | Emergency (ER) | payer MEDICARE, BC ==
[~2022-11-13] VITALS: Ht 157.5 cm; Wt 68.0 kg
[2022-11-13] MEDS ORDERED: ondansetron/PF 4mg/2ml inj IV ONE (15:30)
[2022-11-13] MEDS ORDERED: normal saline 1000ml 1,000 ML IV ONE (15:30)
[2022-11-13] MEDS ORDERED: piperacillin/tazo 3.375gm/50ml 50 ML IV ONE (15:55)
[2022-11-13 15:56] LABS: BASOPHILS # (AUTO) 0.2 X10'3 (0-0.2); BASOPHILS % (AUTO) 1.7 % (0-1); EOSINOPHILS # (AUTO) 0.1 X10'3 (0-0.9); EOSINOPHILS % (AUTO) 1.2 % (0-6); HEMATOCRIT 44.5 % (35.0-45.0); HEMOGLOBIN 14.3 g/dl (12.0-16.0); LYMPHOCYTES # (AUTO) 2.1 X10'3 (1.1-4.8); LYMPHOCYTES % (AUTO) 21.7 % (21-51); MEAN CORPUSCULAR HEMOGLOBIN 31.5 PG (27.0-31.0); MEAN CORPUSCULAR VOLUME 98.3 FL (78-98); MEAN PLATELET VOLUME 9.3 FL (7.4-10.4); MONOCYTES # (AUTO) 0.7 X10'3 (0-0.9); MONOCYTES % (AUTO) 7.3 % (2-12); NEUTROPHILS # (AUTO) 6.5 X10'3 (1.8-7.7); NEUTROPHILS % (AUTO) 68.1 % (42-75); PLATELET COUNT 309 X10'3 (140-440); RED BLOOD COUNT 4.53 X10'6 (4.20-5.60); RED CELL DISTRIBUTION WIDTH 17.3 % (11.5-14.5); WHITE BLOOD COUNT 9.5 X10'3 (4.5-11.0)
[2022-11-13 16:10] LABS: ALANINE AMINOTRANSFERASE 24 U/L (12-78); ALBUMIN 3.3 G/DL (3.4-5.0); ALBUMIN/GLOBULIN RATIO 0.7 (1.1-1.5); ALKALINE PHOSPHATASE 106 IU/L (46-116); ANION GAP 9 (8-16); ASPARTATE AMINO TRANSFERASE 28 U/L (10-37); BILIRUBIN,TOTAL 0.7 MG/DL (0.1-1.0); BLOOD UREA NITROGEN 22 MG/DL (7-18); BUN/CREATININE RATIO 14.2 (6.6-38.0); CALCIUM 9.7 MG/DL (8.5-10.1); CHLORIDE 100 MMOL/L (99-107); CREATININE 1.55 MG/DL (0.40-0.90); GLUCOSE 177 MG/DL (70-104); LIPASE 144 U/L (73-393); SODIUM 137 MMOL/L (135-145); TOTAL CARBON DIOXIDE 28.3 MMOL/L (24-32); TOTAL PROTEIN 7.9 G/DL (6.4-8.2); eGFR 32 ML/MIN
[2022-11-13 16:39] LABS: GLUCOSE, URINE 100 mg/dl (Neg); KETONES,URINE TRACE mg/dl (Neg); LEUKOCYTE ESTERASE ,URINE MODERATE (Neg); NITRITES, URINE NEGATIVE (Neg); OCCULT BLOOD,URINE TRACE-INTACT (Neg); PH,URINE 6.5 (4.8-8.0); PROTEIN,URINE 100 mg/dl (Neg)
[2022-11-13 16:41] VITALS: BP 137/99
[2022-11-13 16:41] LABS: COLOR,URINE DARK YELLOW (Yellow); UA COLLECTION TYPE CLN CATCH MIDSTREAM
[2022-11-13 16:42] LABS: CLARITY,URINE SLIGHTLY CLOUDY (Clear)
[2022-11-13 16:46] LABS: BACTERIA,URINE 2+ /HPF (Neg); RBC,URINE 0-2 /HPF (0-2); SQUAMOUS EPITHELIAL CELL,UR MODERATE /LPF (FEW); WBC,URINE 30-50 /HPF (0-4)
[2022-11-13 16:47] LABS: TRANSITIONAL EPI CELLS,URINE FEW /HPF
[2022-11-13 16:49] LABS: MUCUS STRANDS FEW /LPF (Neg)
[2022-11-13] MEDS ORDERED: POLY119P2 PO (17:11)
[2022-11-13] MEDS ORDERED: AMOX-117 PO (17:11)
[2022-11-13] MEDS ORDERED: polyethylene glycol 3350 17gm powd pack PO STA (17:17)
[2022-11-13] MEDS ORDERED: metoclopramide 10mg tablet PO ONE (17:17)
== END 2022-11-13 17:41 | disposition home or self-care (01) ==
LOC: ER 14:42
DX: K57.92 Diverticulitis of intestine, part unspecified, without perforation or abscess without bleeding (principal); K59.00 Constipation, unspecified; I10 Essential (primary) hypertension; K21.9 Gastro-esophageal reflux disease without esophagitis; E11.9 Type 2 diabetes mellitus without complications; Z91.041 Radiographic dye allergy status; Z88.6 Allergy status to analgesic agent; Z88.1 Allergy status to other antibiotic agents; Z88.2 Allergy status to sulfonamides; Z88.5 Allergy status to narcotic agent; Z90.49 Acquired absence of other specified parts of digestive tract; Z90.710 Acquired absence of both cervix and uterus
CPT/HCPCS: 36415; 71045; 74176; 80053; 81001; 83605; 83690; 84145; 84484; 85025; 87040; 87088; 93005; 96361; 96365; 99285; J2543; J7030

== ENCOUNTER 2022-11-29 13:22 | Emergency (ER) | payer MEDICARE, BC ==
[~2022-11-29] VITALS: Ht 157.5 cm; Wt 68.2 kg
[~2022-11-29 13:22] MED LIST changes: +POLY119P2 PO
[2022-11-29 17:43] LABS: BASOPHILS # (AUTO) 0.1 X10'3 (0-0.2); BASOPHILS % (AUTO) 0.6 % (0-1); EOSINOPHILS # (AUTO) 0.1 X10'3 (0-0.9); EOSINOPHILS % (AUTO) 1.2 % (0-6); HEMATOCRIT 41.9 % (35.0-45.0); HEMOGLOBIN 13.3 g/dl (12.0-16.0); LYMPHOCYTES # (AUTO) 2.3 X10'3 (1.1-4.8); LYMPHOCYTES % (AUTO) 24.5 % (21-51); MEAN CORPUSCULAR HEMOGLOBIN 31.1 PG (27.0-31.0); MEAN CORPUSCULAR HGB CONC 31.8 g/dL (33.0-36.5); MEAN CORPUSCULAR VOLUME 97.9 FL (78-98); MEAN PLATELET VOLUME 9.2 FL (7.4-10.4); MONOCYTES # (AUTO) 1.1 X10'3 (0-0.9); MONOCYTES % (AUTO) 11.5 % (2-12); NEUTROPHILS # (AUTO) 5.7 X10'3 (1.8-7.7); NEUTROPHILS % (AUTO) 62.2 % (42-75); PLATELET COUNT 308 X10'3 (140-440); RED BLOOD COUNT 4.28 X10'6 (4.20-5.60); RED CELL DISTRIBUTION WIDTH 16.5 % (11.5-14.5); WHITE BLOOD COUNT 9.2 X10'3 (4.5-11.0)
[2022-11-29 17:56] LABS: ALANINE AMINOTRANSFERASE 20 U/L (12-78); ALBUMIN 3.2 G/DL (3.4-5.0); ALBUMIN/GLOBULIN RATIO 0.7 (1.1-1.5); ALKALINE PHOSPHATASE 87 IU/L (46-116); ANION GAP 5 (8-16); ASPARTATE AMINO TRANSFERASE 27 U/L (10-37); BILIRUBIN,TOTAL 0.5 MG/DL (0.1-1.0); BLOOD UREA NITROGEN 30 MG/DL (7-18); BUN/CREATININE RATIO 27.3 (6.6-38.0); CALCIUM 11.3 MG/DL (8.5-10.1); CHLORIDE 102 MMOL/L (99-107); GLUCOSE 127 MG/DL (70-104); POTASSIUM 3.6 MMOL/L (3.5-5.1); SODIUM 141 MMOL/L (135-145); TOTAL CARBON DIOXIDE 33.7 MMOL/L (24-32); TOTAL PROTEIN 7.8 G/DL (6.4-8.2); eGFR 47 ML/MIN
[2022-11-29 19:44] LABS: COLOR,URINE YELLOW (Yellow); GLUCOSE, URINE NEGATIVE (Neg); KETONES,URINE NEGATIVE (Neg); LEUKOCYTE ESTERASE ,URINE TRACE (Neg); NITRITES, URINE NEGATIVE (Neg); OCCULT BLOOD,URINE TRACE-INTACT (Neg); PH,URINE 5.5 (4.8-8.0); PROTEIN,URINE NEGATIVE (Neg); UROBILINOGEN,URINE 0.2 E.U/dL (0.2-1.0)
[2022-11-29 19:47] LABS: CLARITY,URINE SLIGHTLY CLOUDY (Clear); UA COLLECTION TYPE STRAIGHT CATH
[2022-11-29 19:56] LABS: BACTERIA,URINE FEW /HPF (Neg); MUCUS STRANDS FEW /LPF (Neg); RBC,URINE 0-2 /HPF (0-2); SQUAMOUS EPITHELIAL CELL,UR FEW /LPF (FEW); WBC,URINE 20-30 /HPF (0-4)
[2022-11-29] MEDS ORDERED: normal saline 1000ml 1,000 ML IV ONE (20:15)
[2022-11-29] MEDS ORDERED: CefTRIAXone/D5W-Rocephin 1gm 50 ML IV ONE (20:15)
[2022-11-29] MEDS ORDERED: CEPH-585 PO ×2 (20:16)
[2022-11-29 22:27] VITALS: BP 200/106
[2022-11-29] MEDS ORDERED: metoprolol tartrate 50mg tablet PO ONE (22:30)
== END 2022-11-29 22:29 | disposition home or self-care (01) ==
LOC: ER 13:22
DX: N39.0 Urinary tract infection, site not specified (principal); I10 Essential (primary) hypertension; K21.9 Gastro-esophageal reflux disease without esophagitis; E11.9 Type 2 diabetes mellitus without complications; M19.90 Unspecified osteoarthritis, unspecified site; Z91.041 Radiographic dye allergy status; Z88.6 Allergy status to analgesic agent; Z88.1 Allergy status to other antibiotic agents; Z88.5 Allergy status to narcotic agent; Z98.890 Other specified postprocedural states; Z90.49 Acquired absence of other specified parts of digestive tract; Z90.710 Acquired absence of both cervix and uterus
CPT/HCPCS: 36415; 70450; 80053; 81001; 84145; 85025; 87088; 96365; 96366; 99285; J0696; J7030

== ENCOUNTER 2022-12-02 13:29 | Inpatient (IN) | payer MEDICARE, BC ==
[~2022-12-02] VITALS: Ht 157.5 cm; Wt 65.0 kg
[~2022-12-02 13:29] MED LIST changes: +CEPH-585 PO
[2022-12-02] MEDS ORDERED: normal saline 1000ML IV soln IV ONE (14:20)
[2022-12-02 14:23] LABS: BASOPHILS # (AUTO) 0.1 X10'3 (0-0.2); BASOPHILS % (AUTO) 1.1 % (0-1); EOSINOPHILS # (AUTO) 0.2 X10'3 (0-0.9); EOSINOPHILS % (AUTO) 1.8 % (0-6); HEMATOCRIT 41.9 % (35.0-45.0); HEMOGLOBIN 13.7 g/dl (12.0-16.0); LYMPHOCYTES # (AUTO) 2.1 X10'3 (1.1-4.8); LYMPHOCYTES % (AUTO) 22.4 % (21-51); MEAN CORPUSCULAR HEMOGLOBIN 31.7 PG (27.0-31.0); MEAN CORPUSCULAR HGB CONC 32.6 g/dL (33.0-36.5); MEAN CORPUSCULAR VOLUME 97.2 FL (78-98); MEAN PLATELET VOLUME 9.9 FL (7.4-10.4); MONOCYTES # (AUTO) 0.9 X10'3 (0-0.9); MONOCYTES % (AUTO) 9.4 % (2-12); NEUTROPHILS % (AUTO) 65.3 % (42-75); PLATELET COUNT 307 X10'3 (140-440); RED BLOOD COUNT 4.31 X10'6 (4.20-5.60); RED CELL DISTRIBUTION WIDTH 17.1 % (11.5-14.5); WHITE BLOOD COUNT 9.2 X10'3 (4.5-11.0)
[2022-12-02] MEDS ORDERED: CefTRIAXone 2gm/D5W 50ml BAG 50 ML IV ONE (14:31)
[2022-12-02 14:36] LABS: ALANINE AMINOTRANSFERASE 14 U/L (12-78); ALBUMIN 3.2 G/DL (3.4-5.0); ALBUMIN/GLOBULIN RATIO 0.7 (1.1-1.5); ALKALINE PHOSPHATASE 81 IU/L (46-116); ANION GAP 5 (8-16); ASPARTATE AMINO TRANSFERASE 24 U/L (10-37); BILIRUBIN,TOTAL 0.8 MG/DL (0.1-1.0); BLOOD UREA NITROGEN 26 MG/DL (7-18); CHLORIDE 103 MMOL/L (99-107); CREATININE 1.13 MG/DL (0.40-0.90); GLUCOSE 128 MG/DL (70-104); POTASSIUM 3.9 MMOL/L (3.5-5.1); SODIUM 141 MMOL/L (135-145); TOTAL CARBON DIOXIDE 33.3 MMOL/L (24-32); TOTAL PROTEIN 7.5 G/DL (6.4-8.2); eGFR 46 ML/MIN
--- NOTE | 2022-12-02 14:40 | NUR ---
pt transported to CT
[2022-12-02 14:41] LABS: CALCIUM 13.5 MG/DL (8.5-10.1)
[2022-12-02] MEDS ORDERED: ondansetron/PF 4mg/2ml inj IV PRN (15:35)
[2022-12-02] MEDS ORDERED: acetaminophen 325mg tablet PO PRN (15:35)
[2022-12-02] MEDS ORDERED: magnesium hydroxide 30ml (MOM) UD suspension PO PRN (15:35)
[2022-12-02] MEDS ORDERED: mag hydrox/Alum hydrox/simeth 30ml oral suspension PO PRN (15:35)
[2022-12-02 15:43] LABS: CLARITY,URINE CLOUDY (Clear); COLOR,URINE YELLOW (Yellow); GLUCOSE, URINE NEGATIVE (Neg); KETONES,URINE NEGATIVE (Neg); LEUKOCYTE ESTERASE ,URINE NEGATIVE (Neg); NITRITES, URINE NEGATIVE (Neg); OCCULT BLOOD,URINE NEGATIVE (Neg); PROTEIN,URINE NEGATIVE (Neg); UROBILINOGEN,URINE 0.2 E.U/dL (0.2-1.0)
[2022-12-02 15:49] LABS: UA COLLECTION TYPE CLN CATCH MIDSTREAM
[2022-12-02 15:50] LABS: HYALINE CASTS 0-3 /LPF (NEGATIVE); SQUAMOUS EPITHELIAL CELL,UR FEW /LPF (FEW)
[2022-12-02 15:51] LABS: BACTERIA,URINE 2+ /HPF (Neg); RBC,URINE 0-2 /HPF (0-2); WBC,URINE 0-4 /HPF (0-4)
[2022-12-02 15:53] LABS: AMORPHOUS PHOSPHATES 2+
[2022-12-02] MEDS ORDERED: metoprolol tartrate 25mg tablet PO ONE (16:07)
[2022-12-02] MEDS: normal saline 1000ml 1,000 ML IV SCH (16:41)
--- NOTE | 2022-12-02 16:45 | NUR ---
ASSISTED THE PT WITH BED MORIN ,URINE OUTPUT 300 ML,POSITIONED UP HIGHER IN BED ,MEDICATED THE PT ,WILL CONT TO MONITOR.
[2022-12-02] MEDS ORDERED: LOSA100T57 PO (19:08)
[2022-12-02] MEDS ORDERED: PRAV20TA4 PO (19:08)
[2022-12-02] MEDS ORDERED: GABA300C PO (19:08)
[2022-12-02] MEDS ORDERED: CALC0.2535 PO (19:08)
[2022-12-02] MEDS ORDERED: DULO30CA52 PO (19:08)
[2022-12-02] MEDS ORDERED: LIDO700A47 TD (19:08)
[2022-12-02] MEDS ORDERED: VALA500T41 PO (19:10)
[2022-12-02] MEDS: docusate sod 100mg capsule PO SCH (19:25)
[2022-12-02 19:35] VITALS: BP 158/81
[2022-12-02 22:21] VITALS: BP 142/75
[2022-12-03] VITALS (7 sets, daily range): BP systolic 130–171; BP diastolic 72–101
[2022-12-03] MEDS: normal saline 1000ml 1,000 ML IV SCH ×3 (01:52→21:22)
[2022-12-03] MEDS ORDERED: metoprolol tartrate 1mg/ml inj IV ONE (03:35)
[2022-12-03 06:36] LABS: BASOPHILS # (AUTO) 0.1 X10'3 (0-0.2); BASOPHILS % (AUTO) 1.1 % (0-1); EOSINOPHILS # (AUTO) 0.3 X10'3 (0-0.9); EOSINOPHILS % (AUTO) 3.7 % (0-6); HEMATOCRIT 41.1 % (35.0-45.0); HEMOGLOBIN 13.4 g/dl (12.0-16.0); LYMPHOCYTES # (AUTO) 2.1 X10'3 (1.1-4.8); LYMPHOCYTES % (AUTO) 23.7 % (21-51); MEAN CORPUSCULAR HEMOGLOBIN 32.3 PG (27.0-31.0); MEAN CORPUSCULAR HGB CONC 32.5 g/dL (33.0-36.5); MEAN CORPUSCULAR VOLUME 99.4 FL (78-98); MEAN PLATELET VOLUME 9.7 FL (7.4-10.4); MONOCYTES # (AUTO) 0.9 X10'3 (0-0.9); MONOCYTES % (AUTO) 10.5 % (2-12); NEUTROPHILS # (AUTO) 5.5 X10'3 (1.8-7.7); PLATELET COUNT 241 X10'3 (140-440); RED BLOOD COUNT 4.13 X10'6 (4.20-5.60); RED CELL DISTRIBUTION WIDTH 17.1 % (11.5-14.5)
[2022-12-03 06:46] LABS: ALANINE AMINOTRANSFERASE 15 U/L (12-78); ALBUMIN 2.9 G/DL (3.4-5.0); ALBUMIN/GLOBULIN RATIO 0.7 (1.1-1.5); ALKALINE PHOSPHATASE 72 IU/L (46-116); ANION GAP 7 (8-16); ASPARTATE AMINO TRANSFERASE 24 U/L (10-37); BILIRUBIN,TOTAL 0.5 MG/DL (0.1-1.0); BLOOD UREA NITROGEN 15 MG/DL (7-18); BUN/CREATININE RATIO 18.1 (6.6-38.0); CALCIUM 10.2 MG/DL (8.5-10.1); CHLORIDE 106 MMOL/L (99-107); CREATININE 0.83 MG/DL (0.40-0.90); GLUCOSE 102 MG/DL (70-104); POTASSIUM 3.1 MMOL/L (3.5-5.1); SODIUM 141 MMOL/L (135-145); TOTAL CARBON DIOXIDE 27.8 MMOL/L (24-32); TOTAL PROTEIN 6.8 G/DL (6.4-8.2); eGFR 65 ML/MIN
[2022-12-03] MEDS: docusate sod 100mg capsule PO SCH ×2 (08:00→21:21)
[2022-12-03] MEDS ORDERED: traMADol 50MG tablet PO PRN (10:25)
[2022-12-03] MEDS ORDERED: metoprolol tartrate 50mg tablet PO ONE (10:30)
--- NOTE | 2022-12-03 13:27 | NUR ---
I AGREE WITH JENNIE BOO ASSESSMENT EXCEPT WHERE I MADE MY OWN ASSESSMENT.
--- NOTE | 2022-12-03 13:30 | NUR ---
PAGED DR. CASTANON REGARDING PATIENT'S HR SUSTAINING IN THE S. PAGER ID: [phone] MESSAGE: [id number]. THANH ESPINOZA. PATIENT HR SUSTAINING IN THE S. THANK YOU. SHAISTA GARCIA X [phone] Addendum: 12/03/22 at 1411 by Shaista Santa RN dr. castanon called back and said to start on cardizem gtt.
--- NOTE | 2022-12-03 14:14 | NUR ---
cardizem gtt at [address] castanon.
[2022-12-03] MEDS ORDERED: diltiazem-NS 100mg/100ml 100 ML IV SCH (14:15)
[2022-12-03] MEDS: potassium Cl 20 mEq SR tablet PO PRN ×2 (14:41→21:55)
--- NOTE | 2022-12-03 14:58 | NUR ---
PATIENT PULLED OUT PIV. ATTEMPTED TO PLACE ANOTHER ONE AND WAS UNSUCCESSFUL. PAGEEarnest PICC NURSE. WAITING ON PHARMACY TO BRING UP CARDIZEM GTT FOR PATIENT. Addendum: 12/03/22 at 1516 by Shaista Santa RN BELLO VAZQUEZ ABLE TO PLACE 20G TO L FOREARM.
--- NOTE | 2022-12-03 15:16 | NUR ---
PAGED PHARMACY ABOUT BRINGING UP CARDIZEM GTT UP FOR PATIENT. NOT IN [place].
--- NOTE | 2022-12-03 15:41 | NUR ---
PAGER ID: [phone] MESSAGE: Anupama [id number], Pt's HR is in the 80s BP is 146/114. Cardizem has not been started yet, do you want me to start it? Ludin [id number]
--- NOTE | 2022-12-03 17:17 | NUR ---
Pt had order from to start Cardizem drip. When I was getting ready to start it her HR was in the 80's. I reached out to Dr Middleton to see if he still wanted to start the drip. I did not get a reply. After the pt's HR went back into the 120's and 130's. I then started the drip. Pt has been stable and I am continuing to monitor.
--- NOTE | 2022-12-03 18:56 | NUR ---
Patient in room PCU 3012. I have received report from JONY GARCIA and had the opportunity to ask questions and assume patient care.
[2022-12-03] MEDS ORDERED: atorvastatin 10mg tablet PO SCH (21:00)
[2022-12-03] MEDS ORDERED: duloxetine 30mg CAPSULE.DR PO SCH (21:00)
[2022-12-03] MEDS ORDERED: gabapentin 300mg capsule PO SCH (21:00)
[2022-12-03] MEDS: apixaban 5mg tablet PO SCH (21:20)
[2022-12-03] MEDS: metoprolol tartrate 50mg tablet PO SCH (21:21)
[2022-12-04] VITALS (8 sets, daily range): BP systolic 87–148; BP diastolic 30–89
[2022-12-04] MEDS: normal saline 1000ml 1,000 ML IV SCH ×2 (00:05→09:08)
--- NOTE | 2022-12-04 06:30 | NUR ---
Patient in room PCU 3012. I have received report from Zenaida GARCIA and had the opportunity to ask questions and assume patient care.
--- NOTE | 2022-12-04 07:02 | NUR ---
Problems reprioritized. Patient report given, questions answered & plan of care reviewed with SIMONA SCHNEIDER.
--- NOTE | 2022-12-04 07:35 | NUR ---
Paged Page Sent PAGER ID: [phone] MESSAGE: [id number]- [place]- Pt on a cardizem gtt. Pt converted from Afib with RVR to SR HR 76. Pt receiving metoprolol and losartan this am. Florentin Manuel [employer]
[2022-12-04] MEDS ORDERED: levoTHYROXINE 125mcg tablet PO SCH (08:00)
[2022-12-04] MEDS ORDERED: LIDOcaine 5% patch TP SCH (08:00)
[2022-12-04] MEDS ORDERED: non-formulary drug (Magnesium Oxide (Magnesium) 1 CAP) PO SCH (08:00)
[2022-12-04] MEDS ORDERED: losartan 50mg tablet PO SCH (08:00)
[2022-12-04 08:26] LABS: BASOPHILS % (AUTO) 0.3 % (0-1); EOSINOPHILS # (AUTO) 0.4 X10'3 (0-0.9); EOSINOPHILS % (AUTO) 4.3 % (0-6); HEMATOCRIT 38.2 % (35.0-45.0); HEMOGLOBIN 12.5 g/dl (12.0-16.0); LYMPHOCYTES # (AUTO) 2.4 X10'3 (1.1-4.8); LYMPHOCYTES % (AUTO) 26.1 % (21-51); MEAN CORPUSCULAR HEMOGLOBIN 32.5 PG (27.0-31.0); MEAN CORPUSCULAR HGB CONC 32.6 g/dL (33.0-36.5); MEAN CORPUSCULAR VOLUME 99.6 FL (78-98); MEAN PLATELET VOLUME 9.5 FL (7.4-10.4); MONOCYTES % (AUTO) 10.8 % (2-12); NEUTROPHILS # (AUTO) 5.3 X10'3 (1.8-7.7); NEUTROPHILS % (AUTO) 58.5 % (42-75); PLATELET COUNT 267 X10'3 (140-440); RED BLOOD COUNT 3.84 X10'6 (4.20-5.60); RED CELL DISTRIBUTION WIDTH 16.6 % (11.5-14.5)
--- NOTE | 2022-12-04 08:52 | NUR ---
Paged Page Sent promotional table spacer PAGER ID: [phone] MESSAGE: [id number]- [place]- Pt BP dropped to 85/39 HR 65 @ 0830hrs. Dwayne rojas. Pt SBP redrawn 102/51. Maryan HOPEN
[2022-12-04 08:56] LABS: ALANINE AMINOTRANSFERASE 20 U/L (12-78); ALBUMIN 2.9 G/DL (3.4-5.0); ALBUMIN/GLOBULIN RATIO 0.8 (1.1-1.5); ALKALINE PHOSPHATASE 73 IU/L (46-116); ANION GAP 4 (8-16); ASPARTATE AMINO TRANSFERASE 26 U/L (10-37); BILIRUBIN,TOTAL 0.5 MG/DL (0.1-1.0); BLOOD UREA NITROGEN 12 MG/DL (7-18); CALCIUM 9.2 MG/DL (8.5-10.1); CHLORIDE 111 MMOL/L (99-107); CREATININE 0.92 MG/DL (0.40-0.90); GLUCOSE 101 MG/DL (70-104); POTASSIUM 4.5 MMOL/L (3.5-5.1); SODIUM 145 MMOL/L (135-145); TOTAL CARBON DIOXIDE 30.5 MMOL/L (24-32); TOTAL PROTEIN 6.7 G/DL (6.4-8.2); eGFR 58 ML/MIN
[2022-12-04] MEDS: metoprolol tartrate 50mg tablet PO SCH (09:00)
[2022-12-04] MEDS: apixaban 5mg tablet PO SCH (09:01)
[2022-12-04] MEDS: docusate sod 100mg capsule PO SCH (09:01)
--- NOTE | 2022-12-04 16:40 | NUR ---
All written and verbal instructions provided to Jagruti GARCIA from [facility]. Benjy was notified of discharge and agreeable to send patient to [facility]. All questions answered. PIV discontinued. Telebox discontinued. [employer] arrived. Pt transferred to [facility]. Pt currently on continuous oxygen @ 2LPM via nasal cannula. Pt belongings given to [employer] staff including clothes, cell phone, hearing aid tank charger, pt has hearing aids current in ear x 2, glasses, and paperwork handed to [employer] staff. Addendum: 12/04/22 at 1648 by Florentin Manuel LVN Amended: Links added.
== END 2022-12-04 16:45 | DRG 640 ==
LOC: ER 13:29 → ED HOLD 15:36 → PCU 3S 19:15
PROVIDERS: ADMIT Family Medicine; ATTEND Family Medicine
DX: E83.52 Hypercalcemia (principal); G93.41 Metabolic encephalopathy; I50.21 Acute systolic (congestive) heart failure; N39.0 Urinary tract infection, site not specified; I48.91 Unspecified atrial fibrillation; E11.42 Type 2 diabetes mellitus with diabetic polyneuropathy; E89.0 Postprocedural hypothyroidism; Z66 Do not resuscitate; K21.9 Gastro-esophageal reflux disease without esophagitis; I11.0 Hypertensive heart disease with heart failure; Z79.01 Long term (current) use of anticoagulants; Z82.49 Family history of ischemic heart disease and other diseases of the circulatory system; Z83.3 Family history of diabetes mellitus; Z86.73 Personal history of transient ischemic attack (TIA), and cerebral infarction without residual deficits; Z87.442 Personal history of urinary calculi; Z90.49 Acquired absence of other specified parts of digestive tract; Z90.710 Acquired absence of both cervix and uterus; Z90.721 Acquired absence of ovaries, unilateral; Z90.81 Acquired absence of spleen; Z88.8 Allergy status to other drugs, medicaments and biological substances; Z88.0 Allergy status to penicillin; Z88.5 Allergy status to narcotic agent; Z79.899 Other long term (current) drug therapy; Z79.890 Hormone replacement therapy
CPT/HCPCS: 36415; 70450; 71045; 80053; 81001; 83605; 83880; 83970; 84145; 84484; 85025; 87040; 87081; 87088; 96365; 96366; 97116; 97161; 97530; 99285; A4615; A6213; G0378; J0696; J2405; J3490; J7030

== ENCOUNTER 2022-12-16 21:33 | Emergency (ER) | payer MEDICARE, BC ==
[~2022-12-16] VITALS: Ht 165.1 cm; Wt 80.0 kg
[~2022-12-16 21:33] MED LIST changes: +CALC0.2535 PO; -CALC0.2536 PO; -CEPH-585 PO; -DIAZ2TAB3 PO; +DULO30CA52 PO; -ESOM40CA49 PO; +GABA300C PO; +LIDO700A47 TD; +LOSA100T57 PO; -LOSA50TA64 PO; -OXYC-145 PO; -POLY119P2 PO; -PRAV10TA39 PO; +PRAV20TA4 PO; -VALA500T PO; +VALA500T41 PO
[2022-12-16 23:15] VITALS: BP 150/79
[2022-12-16] MEDS ORDERED: acetaminophen 325mg tablet PO ONE (23:20)
== END 2022-12-16 23:44 | disposition home or self-care (01) ==
LOC: ER 21:33
DX: G44.209 Tension-type headache, unspecified, not intractable (principal); I10 Essential (primary) hypertension; K21.9 Gastro-esophageal reflux disease without esophagitis; E11.9 Type 2 diabetes mellitus without complications; M19.90 Unspecified osteoarthritis, unspecified site; Z87.442 Personal history of urinary calculi; Z90.89 Acquired absence of other organs; Z90.710 Acquired absence of both cervix and uterus; Z86.73 Personal history of transient ischemic attack (TIA), and cerebral infarction without residual deficits; Z88.8 Allergy status to other drugs, medicaments and biological substances; Z88.2 Allergy status to sulfonamides; Z88.1 Allergy status to other antibiotic agents; Z79.01 Long term (current) use of anticoagulants; Z79.899 Other long term (current) drug therapy; Z79.84 Long term (current) use of oral hypoglycemic drugs
CPT/HCPCS: 70450; 99284

== ENCOUNTER 2023-03-08 08:13 | Emergency (ER) | payer MEDICARE, BC ==
[~2023-03-08] VITALS: Ht 165.1 cm; Wt 59.9 kg
[~2023-03-08 08:13] MED LIST changes: +ACET325T55 PO; +ATOR10TA70 PO; +BISA10SU11 RC; +CARV-50 PO; +CLON0.1T PO; +DICL20GE TOP; +DOCU100C40 PO; -LEVO125T PO; +LEVO150T8 PO; -LOSA100T57 PO; +LOSA100T58 PO; +MAG-154 PO; +MAGN400O6 PO; -METO50TA17 PO; +OMEP20CA16 PO; -PRAV20TA4 PO
--- NOTE | 2023-03-08 08:45 | NUR ---
Patient back from CT scan with escort from RN
--- NOTE | 2023-03-08 09:30 | NUR ---
Trauma alert called of by
[2023-03-08] MEDS ORDERED: LIDOcaine 1% W/epiNEPHrine 1:200,000 10ml vial IJ ONE (10:10)
[2023-03-08] MEDS ORDERED: LIDOcaine 1% W/epiNEPHrine 1:100,000 20ml vial IJ ONE (10:25)
--- NOTE | 2023-03-08 11:10 | NUR ---
Awaiting transport at this time to [facility]
--- NOTE | 2023-03-08 11:12 | NUR ---
Nurse to Nurse Report to [place] at [place]
[2023-03-08 11:42] VITALS: BP 138/74
== END 2023-03-08 11:43 | disposition home or self-care (01) ==
LOC: ER 08:14
DX: S01.01XA Laceration without foreign body of scalp, initial encounter (principal); S09.90XA Unspecified injury of head, initial encounter; I10 Essential (primary) hypertension; K21.9 Gastro-esophageal reflux disease without esophagitis; E11.9 Type 2 diabetes mellitus without complications; M19.90 Unspecified osteoarthritis, unspecified site; Z88.1 Allergy status to other antibiotic agents; Z91.041 Radiographic dye allergy status; Z88.6 Allergy status to analgesic agent; Z98.890 Other specified postprocedural states; Z90.49 Acquired absence of other specified parts of digestive tract; Z90.710 Acquired absence of both cervix and uterus; W19.XXXA Unspecified fall, initial encounter; S16.1XXA Strain of muscle, fascia and tendon at neck level, initial encounter; Y93.89 Activity, other specified; Y92.89 Other specified places as the place of occurrence of the external cause; Y99.8 Other external cause status
CPT/HCPCS: 12001; 70450; 72125; 99285; J3490; A6258; A6402; A6449